=== PATIENT | male | born 1990 | race African-American/Black ===

== ENCOUNTER 2024-01-17 11:38 | Emergency (ER) | payer OTHER, SELFPAY ==
[~2024-01-17] VITALS: Ht 170.2 cm; Wt 73.5 kg
[~2024-01-17 11:38] MED LIST: ANBEEL MT; COGENTIN PO; HALDOL PO; SERO1TAB PO
[2024-01-17 11:43] VITALS: BP 133/79; TEMP 97.7; O2SAT 98
== END 2024-01-17 13:57 | disposition left against medical advice (07) ==
LOC: EDBD 11:38 → M ED 11:38
DX: Z53.21 Procedure and treatment not carried out due to patient leaving prior to being seen by health care provider (principal)

== ENCOUNTER 2024-02-06 23:56 | Inpatient (IN) | payer OTHER ==
[~2024-02-06] VITALS: Ht 170.2 cm; Wt 65.9 kg
[2024-02-07 01:11] LABS: AMPHETAMINES LEVEL URINE NEGATIVE (NEGATIVE); BARBITURATES URINE NEGATIVE (NEGATIVE); BENZODIAZEPINES URINE NEGATIVE (NEGATIVE); CANNABINOIDS URINE NEGATIVE (NEGATIVE); COCAINE METABOLITE URINE NEGATIVE (NEGATIVE); METHADONE URINE NEGATIVE (NEGATIVE); OPIATES URINE NEGATIVE (NEGATIVE); PHENCYCLIDINE URINE NEGATIVE (NEGATIVE)
[2024-02-07 01:27] LABS: HEMATOCRIT 45.6 % (42.0-52.0); HEMOGLOBIN 15.4 g/dl (13.5-17.5); MEAN CORPUSCULAR HEMOGLOBIN 30.3 pg (27.0-33.0); MEAN CORPUSCULAR HGB CONC 33.8 g/dl (32.0-36.5); MEAN CORPUSCULAR VOLUME 89.6 fl (80.0-96.0); PLATELET COUNT, AUTOMATED 417 10^3/uL (150-450); RED BLOOD COUNT 5.09 10^6/uL (4.30-6.10); WHITE BLOOD COUNT 6.7 10^3/uL (4.0-10.0)
[2024-02-07 01:56] LABS: ETHYL ALCOHOL (ETHANOL) 0.003 % (0.000-0.010)
[2024-02-07 01:58] LABS: ALBUMIN 3.9 G/DL (3.2-5.2); ALKALINE PHOSPHATASE 105 U/L (46-116); ALT/SGPT 21 U/L (7.0-40); AST/SGOT 17 U/L (<34); BILIRUBIN,DIRECT 0.1 MG/DL (<0.4); BILIRUBIN,TOTAL 0.5 MG/DL (0.3-1.2); BLOOD UREA NITROGEN 25 MG/DL (9-23); CALCIUM LEVEL 9.2 MG/DL (8.5-10.1); CARBON DIOXIDE LEVEL 32 MMOL/L (20-31); CHLORIDE LEVEL 97 MMOL/L (98-107); CREATININE FOR GFR 1.61 MG/DL (0.70-1.30); GLOMERULAR FILTRATION RATE > 60.0 (>60); GLUCOSE, FASTING 84 MG/DL (60-100); POTASSIUM SERUM 4.9 MMOL/L (3.5-5.1); SALICYLATE LEVEL < 3.0 MG/DL (<30); SODIUM LEVEL 135 MMOL/L (136-145); TOTAL PROTEIN 7.2 G/DL (5.7-8.2)
[2024-02-07 02:00] LABS: THYROID STIMULATING HORMONE 1.731 uIU/ML (0.55-4.78)
[2024-02-07] MEDS ORDERED: HOME MED LIST COMPLETE! XX SCH (02:50)
[2024-02-07] MEDS ORDERED: traZODone 50 MG TAB PO PRN (20:45)
[2024-02-07] MEDS ORDERED: OLANZapine 5 MG TAB PO PRN (20:45)
[2024-02-07] MEDS ORDERED: diphenhydrAMINE 25MG CAP PO PRN (20:45)
[2024-02-07] MEDS ORDERED: ACETAMINOPHEN TAB 650MG DOSE (2X325MG) PO PRN (20:45)
[2024-02-07] MEDS ORDERED: MOM 30ML SUSPENSION UDC PO PRN (20:45)
[2024-02-07] MEDS ORDERED: MAALOX 30 ML SUSP *UDC PO PRN (20:45)
[2024-02-07] MEDS ORDERED: IBUPROFEN 400MG TAB PO PRN (20:45)
[2024-02-07 22:29] VITALS: BP 106/64; TEMP 98.8; O2SAT 94
[2024-02-08] MEDS: OLANZapine 5 MG TAB PO SCH (11:11)
[2024-02-08 16:20] VITALS: BP 102/64; TEMP 97; O2SAT 97
[2024-02-09 07:41] LABS: HDL CHOLESTEROL 43.3 MG/DL (>40); LDL CHOLESTEROL 74.1 MG/DL (<100); NON-HDL-C 86.7 MG/DL
[2024-02-09 18:34] VITALS: BP 122/68; TEMP 97.4
[2024-02-10 06:43] VITALS: BP 102/56; TEMP 98.4; O2SAT 100
[2024-02-10 16:03] VITALS: BP 126/81; TEMP 96.7; O2SAT 99
[2024-02-10] MEDS: OLANZapine 5 MG TAB PO SCH (20:46)
[2024-02-11 16:24] VITALS: BP 108/73; TEMP 97.8; O2SAT 100
[2024-02-12 06:39] VITALS: BP 105/65; TEMP 97.6; O2SAT 99
[2024-02-12 16:22] VITALS: BP 118/67; TEMP 98.1; O2SAT 100
[2024-02-13 06:26] VITALS: BP 131/67; TEMP 98.1; O2SAT 99
[2024-02-13 16:15] VITALS: BP 133/70; TEMP 98.1; O2SAT 100
[2024-02-14 17:12] VITALS: BP 139/68; TEMP 97.6; O2SAT 99
[2024-02-15 06:10] VITALS: BP 111/61; TEMP 98.2; O2SAT 98
[2024-02-15 17:20] VITALS: BP 116/61; TEMP 98.5; O2SAT 98
[2024-02-16 06:11] VITALS: BP 112/59; TEMP 97.8; O2SAT 97
[2024-02-16 17:09] VITALS: BP 127/74; TEMP 97.5; O2SAT 100
[2024-02-17 06:18] VITALS: BP 91/53; TEMP 98.1; O2SAT 98
[2024-02-17 16:46] VITALS: BP 142/57; TEMP 98.1; O2SAT 98
[2024-02-18 06:07] VITALS: BP 90/55; TEMP 98.2; O2SAT 96
[2024-02-18] MEDS ORDERED: OLAN1TAB16 PO (09:51)
== END 2024-02-18 12:55 | disposition home or self-care (01) | DRG 750 ==
LOC: M ED 23:56 → M PSY 02-07 22:21
PROVIDERS: ADMIT Student in an Organized Health Care Education/Training Program; ATTEND Student in an Organized Health Care Education/Training Program
DX: F20.0 Paranoid schizophrenia (principal); Z91.148 Patient's other noncompliance with medication regimen for other reason; F41.9 Anxiety disorder, unspecified; Z59.00 Homelessness unspecified